=== PATIENT | male | born 1995 | race African-American/Black ===

== ENCOUNTER 2019-07-17 01:13 | Emergency (ER) | payer OTHER, SELFPAY ==
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
[2019-07-17 01:17] VITALS: BP 123/81; PULSE 89; RESP 14; TEMP 36.3; O2SAT 98
[2019-07-17 02:13] LABS: Basophils Percent Auto 0.5 % (0.2-1.2); Eosinophils Absolute Auto 0.1 K/mm3 (0-0.3); Eosinophils Percent Auto 2.5 % (0-4.4); Hematocrit 42.5 % (42.0-52.0); Hemoglobin 13.7 g/dL (14.0-18.0); Immature Granulocyte Absolute 0.04 K/mm3 (0.00-0.031); Immature Granulocyte Percent A 0.7 % (0-0.5); Lymphocytes Absolute Auto 2.11 K/mm3 (0.9-3.2); Lymphocytes Percent Auto 37.4 % (18.3-44.2); Mean Corpuscular HGB Conc 32.2 g/dl (32-36); Mean Corpuscular Hemoglobin 27.8 pg (26-34); Mean Corpuscular Volume 86.4 fl (80-100); Monocytes Absolute Auto 0.5 K/mm3 (0.1-0.6); Monocytes Percent Auto 8.7 % (2.6-8.5); Neutrophils Absolute Auto 2.8 K/mm3 (1.3-6.7); Neutrophils Percent Auto 50.2 % (45.5-73.1); Platelet Count Result 392 k/mm3 (150-375); Red Blood Count 4.92 M/mm3 (4.6-6.20); Red Cell Distribution Width 12.9 % (11.5-14.5); White Blood Count 5.6 K/mm3 (4.5-10.0)
[2019-07-17 02:25] LABS: INR 0.9; Prothrombin Time 11.5 Seconds (11.1-14.7)
[2019-07-17 02:26] LABS: Partial Thromboplastin Time 24.5 SECONDS (22.3-36.8)
[2019-07-17 02:27] LABS: Alanine Aminotransferase 82 U/L (4-50); Albumin Level 4.9 g/dL (3.5-5.1); Alkaline Phosphatase 85 U/L (38-126); Aspartate Amino Transferase 55 U/L (17-59); Bilirubin,Total 0.2 mg/dL (0.2-1.3); Blood Urea Nitrogen 13 mg/dL (9-20); Calcium 9.6 mg/dL (8.4-10.2); Carbon Dioxide 27 mmol/L (22-30); Chloride 103 mmol/L (98-107); Estimated CRCL calculation 121 ml/min; Estimated Glomerular Filt Rate > 60; Glucose 119 mg/dL (75-110); Potassium 3.5 mmol/L (3.4-5.0); Sodium 144 mmol/L (137-145)
[2019-07-17 02:42] VITALS: BP 137/85; PULSE 82; RESP 20; O2SAT 95
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
[2019-07-17 04:35] VITALS: BP 133/66; PULSE 81; RESP 14; O2SAT 98
--- NOTE | 2019-07-17 05:05 | PC.NURSE ---
pt refused tdap, then changed his mind.
[2019-07-17] MEDS: TETANUS,DIPHTHERIA,AC PERTUSSIS ADULT (0.5 ML) BOOSTRIX IM (05:43)
[2019-07-17 06:10] VITALS: BP 129/79; PULSE 68; RESP 12; TEMP 36.7; O2SAT 100
== END 2019-07-17 06:12 | disposition home or self-care (01) ==
PROVIDERS: Emergency Provider General Practice
DX: S41.012A Laceration without foreign body of left shoulder, initial encounter (principal); Z23 Encounter for immunization; W26.0XXA Contact with knife, initial encounter
CPT/HCPCS: 12032; 36415; 71045; 73030; 80053; 85025; 85610; 85730; 90471; 90715; 99284

== ENCOUNTER 2021-02-12 22:39 | Emergency (ER) | payer SELFPAY ==
--- NOTE | ~2021-02-12 | XR_ITS ---
EXAMINATION: XR abdomen/kub 1V DATE: 02/13/2021 04:26 INDICATION: Left flank pain. TECHNIQUE: A supine view of the abdomen on 2 radiographs was obtained. COMPARISON: CT abdomen and pelvis 02/13/2021 FINDINGS: There are no dilated loops of bowel. There is no urolithiasis. There are phleboliths in the pelvis. IMPRESSION: 1. No urolithiasis. Reviewed, dictated and finalized at location A. [employer] IMPRESSION: 1. No urolithiasis.
--- NOTE | ~2021-02-12 | CT_ITS ---
EXAMINATION: CT abdomen pelvis wo con DATE: 02/13/2021 04:31 INDICATION: Hematuria. Left groin pain. TECHNIQUE: Computed tomography (CT) of the abdomen and pelvis was performed without intravenous contr ast. Automated exposure control and iterative reconstruction technique were employed. The dose-length product was 1290.83 mGy-cm. COMPARISON: None. FINDINGS: The visualized portions of the lung bases demonstrate mild atelectasis on the left. No pleu ral effusion. The heart size is normal. No pericardial effusion. There is diffuse hepatic steatosis. The gallbladder, spleen, pancreas, adrenal glands, and kidneys are normal. There is no urolithiasis. There are no dilated loops of bowel. The appendix is normal. There are no pathologically enlarged lym ph nodes. There is no free intraperitoneal fluid. There is mild thoracic spondylosis. There is mild c hronic height loss of multiple thoracic vertebral bodies. IMPRESSION: 1. No urolithiasis. 2. Diffuse hepatic steatosis. Reviewed, dictated and finalized at location A. ER TR[employer]MER
[2021-02-12 22:45] VITALS: BP 149/100; PULSE 102; RESP 18; TEMP 36.3; O2SAT 99
[2021-02-13 02:10] VITALS: BP 152/100; PULSE 95; RESP 18; O2SAT 98
[2021-02-13 03:44] LABS: Basophils Percent Auto 0.7 % (0.2-1.2); Eosinophils Absolute Auto 0.1 K/mm3 (0-0.3); Eosinophils Percent Auto 2.6 % (0-4.4); Hematocrit 41.6 % (42.0-52.0); Hemoglobin 13.8 g/dL (14.0-18.0); Immature Granulocyte Absolute 0.02 K/mm3 (0.00-0.031); Immature Granulocyte Percent A 0.4 % (0-0.5); Lymphocytes Absolute Auto 2.49 K/mm3 (0.9-3.2); Lymphocytes Percent Auto 45.7 % (18.3-44.2); Mean Corpuscular HGB Conc 33.2 g/dl (32-36); Mean Corpuscular Hemoglobin 28.3 pg (26-34); Mean Corpuscular Volume 85.2 fl (80-100); Mean Platelet Volume 8.6 fl (7.4-10.4); Monocytes Absolute Auto 0.5 K/mm3 (0.1-0.6); Monocytes Percent Auto 9.2 % (2.6-8.5); Neutrophils Absolute Auto 2.3 K/mm3 (1.3-6.7); Neutrophils Percent Auto 41.4 % (45.5-73.1); Platelet Count Result 419 k/mm3 (150-375); Red Blood Count 4.88 M/mm3 (4.6-6.20); Red Cell Distribution Width 12.4 % (11.5-14.5); White Blood Count 5.5 K/mm3 (4.5-10.0)
[2021-02-13 03:58] LABS: Alanine Aminotransferase 192 U/L (4-50); Albumin Level 4.9 g/dL (3.5-5.1); Alkaline Phosphatase 93 U/L (38-126); Anion Gap 10 mmol/L (8-16); Aspartate Amino Transferase 89 U/L (17-59); Bilirubin,Total 0.4 mg/dL (0.2-1.3); Blood Urea Nitrogen 15 mg/dL (9-20); Calcium 9.9 mg/dL (8.4-10.2); Carbon Dioxide 25 mmol/L (22-30); Chloride 103 mmol/L (98-107); Estimated CRCL calculation 115 ml/min; Estimated Glomerular Filt Rate > 60; Glucose 101 mg/dL (65-110); Potassium 3.7 mmol/L (3.4-5.0); Sodium 138 mmol/L (137-145)
[2021-02-13 04:09] LABS: Add Urine Microscopic? YES; Appearance Urine Clear (Clear); Bilirubin Urine Negative (Negative); Blood Urine Negative (Negative); Color Urine Yellow (Yellow); Glucose Urine UA Negative (Negative); Ketones Urine Negative (Negative); Leukocyte Esterase Ur Negative LEU/UL (Negative); Mucus Urine Moderate /lpf; Nitrate Urine Negative (Negative); Protein Urine Negative (Negative); Squamous Epithelial Cell Urine Rare /hpf (Few); WBC Urine 0-3 /hpf
[2021-02-13 04:16] LABS: Specific Grav Ur 1.032 (1.001-1.035)
--- NOTE | 2021-02-13 04:44 | ED.MALEGU ---
HPI - Male Genitourinary General Chief complaint: Urogenital-Male Stated complaint: left groin pain Time Seen by Provider: 02/13/21 02:04 Source: patient and RN notes reviewed Mode of arrival: ambulatory Limitations: no limitations History of Present Illness HPI Narrative: This is a 25 year old male who presents for evaluation of left groin pain. Patient reports mild dull ache for 2 weeks but over past 3 days his pain has worsened. He states his pain is located to left groin. He denies testicular enlargement, swelling or pain. He denies hematuria, dysuria or penile discharged. He denies back pain, nausea, vomiting or fever. He denies noticing any bulging at location. He has not taken anything for pain. Rates pain 08/14. Related Data Allergies Allergy/AdvReac Type Severity Reaction Status Date / Time amoxicillin Allergy Unknown Verified 02/13/21 02:07 Review of Systems Review of Systems: All systems reviewed & are unremarkable except as noted in HPI and below PMFSH Past Medical History Medical History Patient denies medical problems Surgical History Surgical History (Updated 07/17/19 @ 04:31 by Valerie Stanley MD) No pertinent past surgical history Social History Social History (Updated 07/17/19 @ 04:31 by Valerie Stanley MD) Smoking status: Never smoker Alcohol intake: current Exam Const: General: healthy appearing, no acute distress and alert Eyes: EOM: EOMs intact bilaterally Resp: Effort & Inspection: normal respiratory effort and no retractions Auscultation: clear to auscultation bilaterally Cardio: Rate: regular rate Rhythm: regular rhythm Heart sounds: no murmurs GI: GI Palp: Yes Soft to palpation, No Tenderness to palpation present (GI), No Guarding due to palpation present (GI) and No Rigid due to palpation Auscultation: normal bowel sounds : General: Yes no CVA tenderness Penis: Yes normal penis and Yes circumcised Scrotum: scrotum normal and no scrotal swelling Testes: no epidiymal tenderness, no testicular swelling and no testicular tenderness Back/Spine/Pelvis: Back: no CVA tenderness Skin: General skin exam: normal color Rashes: no rashes Neuro: General: patient oriented x3 and moves all extremities Cranial nerves: Yes Nystagmus not present Psych: Mental Status: mental status grossly normal Affect: normal affect Course Reevaluation(s) Reevaluation #1: PAtient has normal testicular and scrotal exam. CT scan did not show nephrolithiasis. He declines medication. Date: 02/13/21 Time: 05:40 Vital Signs Vital signs: Vital Signs Temperature 97.3 F L 02/12/21 22:45 Pulse Rate 102 H 02/12/21 22:45 Respiratory Rate 18 02/12/21 22:45 Blood Pressure 149/100 H 02/12/21 22:45 Pulse Oximetry 99 02/12/21 22:45 Temperature 97.3 F L 02/12/21 22:45 Pulse Rate 81 02/13/21 05:57 Respiratory Rate 17 02/13/21 05:57 Blood Pressure 146/95 H 02/13/21 05:57 Pulse Oximetry 98 02/13/21 05:57 MDM - Male Genitourinary Lab Data Attestation: I reviewed the patient's lab results. Result diagrams: 02/13/21 03:39 02/13/21 03:39 Labs: Lab Results 02/13/21 02/13/21 02/13/21 Range/Units 03:39 03:39 03:52 WBC 5.5 (4.5-10.0) K/mm3 RBC 4.88 (4.6-6.20) M/mm3 Hgb 13.8 L (14.0-18.0) g/dL Hct 41.6 L (42.0-52.0) % MCV 85.2 (80-100) fl MCH 28.3 (26-34) pg MCHC 33.2 (32-36) g/dl RDW 12.4 (11.5-14.5) % Plt Count 419 H (150-375) k/mm3 MPV 8.6 (7.4-10.4) fl Immature Gran % (Auto) 0.4 (0-0.5) % Neut % (Auto) 41.4 L (45.5-73.1) % Lymph % (Auto) 45.7 H (18.3-44.2) % Otero % (Auto) 9.2 H (2.6-8.5) % Eos % (Auto) 2.6 (0-4.4) % Baso % (Auto) 0.7 (0.2-1.2) % Lymph # (Auto) 2.49 (0.9-3.2) K/mm3 Otero # (Auto) 0.5 (0.1-0.6) K/mm3 Eos # (Auto) 0.1 (0-0.3) K/mm3 Baso # (Auto)
[2021-02-13 05:57] VITALS: BP 146/95; PULSE 81; RESP 17; O2SAT 98
== END 2021-02-13 05:56 | disposition home or self-care (01) ==
PROVIDERS: Emergency Provider General Practice; PCP Nurse Practitioner Family
DX: R10.32 Left lower quadrant pain (principal)
CPT/HCPCS: 36415; 74018; 74176; 80053; 81001; 85025; 99284

== ENCOUNTER 2021-08-06 22:08 | Emergency (ER) | payer OTHER, SELFPAY ==
--- NOTE | ~2021-08-06 | CT_ITS ---
EXAMINATION: CT cervical spine wo con DATE: 08/06/2021 22:43 INDICATION: Neck pain TECHNIQUE: Computed tomography (CT) of the cervical spine was performed without intravenous contrast. The dose-length product (DLP) was 1245.47 mGy-cm. Automated exposure control and iterative reconstru ction technique were employed. COMPARISON: None FINDINGS: There is no fracture, dislocation, or subluxation. The vertebral body heights, alignment, a nd intervertebral disc spaces are normal. The paravertebral soft tissues are unremarkable. The odonto id is intact. There appears to be mild cervical lymphadenopathy of unclear etiology. IMPRESSION: 1. No acute osseous abnormality. 2. Mild cervical lymphadenopathy of unclear etiology. Clinical follow-up is recommended. Reviewed, dictated and finalized at location F. IMPRESSION: 1. No acute osseous abnormality. 2. Mild cervical lymphadenopathy of unclear etiology. Clinical follow-up is rec ommended.
--- NOTE | ~2021-08-06 | XR_ITS ---
EXAMINATION: XR knee LT 3V DATE: 08/06/2021 22:40 INDICATION: Left knee pain TECHNIQUE: Three views of the left knee were obtained. COMPARISON: None. FINDINGS: Alignment is normal. No fracture or osteochondral lesion. Joint spaces are normal with no e rosions. No joint effusion/synovitis. Soft tissues are unremarkable. IMPRESSION: 1. No acute osseous abnormality. Reviewed, dictated and finalized at location F.
[2021-08-06 22:12] VITALS: BP 133/110; PULSE 117; RESP 20; TEMP 36.6; O2SAT 99
[2021-08-06 22:23] VITALS: BP 133/110; PULSE 98; RESP 20; O2SAT 99
--- NOTE | 2021-08-06 22:32 | PC.NURSE ---
Pt to Xray at this time.
--- NOTE | 2021-08-06 22:49 | PC.NURSE ---
DEWAYNE from DR. Aleman for 60mg Toradol IM once.
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
[2021-08-06 23:16] VITALS: BP 155/106; PULSE 108; RESP 18; O2SAT 98
[2021-08-07 00:05] VITALS: BP 142/102; PULSE 100; RESP 18; O2SAT 99
== END 2021-08-07 00:03 | disposition home or self-care (01) ==
PROVIDERS: Emergency Provider Emergency Medicine; PCP Nurse Practitioner Family
DX: S80.212A Abrasion, left knee, initial encounter (principal); S16.1XXA Strain of muscle, fascia and tendon at neck level, initial encounter; R59.9 Enlarged lymph nodes, unspecified; V43.62XA Car passenger injured in collision with other type car in traffic accident, initial encounter
CPT/HCPCS: 72125; 73562; 99284

== ENCOUNTER 2024-05-21 14:14 | Emergency (ER) | payer SELFPAY ==
[2024-05-21 15:01] VITALS: BP 154/96; PULSE 96; RESP 16; TEMP 36.4; O2SAT 98
--- OUTSIDE RECORDS SUMMARY | 2024-05-21 16:48 | XMS_ITS | Clinical Summary ---
Author Organization [facility] Address [address] [place] [id number] Care Team Providers Care Art Consultant Name Role Phone Елена Escalante SKIN CARE TECHNICIAN Primary Care Provider [phone] Allergies Active Allergy Reactions Criticality Noted Date Comments Amoxicillin Hives 05/29/2019 Medications No known medications Family History Medical History Relation Comments No Known Problems Mother Relation Status Comments Father Mother Alive Social History Tobacco Use Types Packs/Day Years Used Date Smoking Tobacco: Never Passive Smoke Exposure: Never Smokeless Tobacco: Never Tobacco Cessation:Counseling Given: Not Answered Alcohol Use Standard Drinks/Week Comments Never 0 (1 standard drink = 0.6 oz pur e alcohol) AUDIT-C Answer Date Recorded Frequency of Alcohol Consumption Never 05/29/2019 Average Number of Drinks Not on file 020 Frequency of Binge Drinking Not on file 05/06 Sex and Gender Information Value Date Recorded Sex Assigned at Not on file Legal Sex Male 10:32 PM CDT Gender Identity Not on file Sexual Orientation Not on file Last Filed Vital Signs Vital Sign Reading Time Taken Comments Blood Pressure 153/94 12/16/2022 2:13 PM CDT Pulse 78 12/16/2022 2:13 PM CDT Temperature 36.7 C (98 F) 12/16/2022 2:13 PM CDT Respiratory Rate 20 12/16/2022 2:13 PM CDT Oxygen Saturation 99% 12/16/2022 2:13 PM CDT Inhaled Oxygen Concentration - - Weight 117.9 kg (260 lb) 12/16/2022 2:13 PM CDT Height 177.8 cm (5' 10 ) 12/16/2022 2:13 PM CDT Body Mass Index 37.31 12/16/2022 2:13 PM CDT Plan of Treatment Health Maintenance Due Date Last Done Comments Annual Physical 1996 Hepatitis C 09/17/2011 COVID-19 Vaccine ( season) 2023 Influenza Adult (#1) 2023 DTaP, Tdap and Td Vaccines (7 - Td or Tdap) 07/16/2029 07/17/2019, 07/08/2010, 12/18/2004, Additional history exists Hepatitis B Vaccines Completed 03/19/1997, 12/26/1996, 04/19/1995 Meningococcal Vaccine Aged Out 08/03/2006 No yasmin noemi eligible based on patient's age to complete this topic HPV Vaccines Completed 07/08/2010, 12/05, 10/21/2009 Meningococcal B Vaccine Aged Out No l onger eligible based on patient's age to complete this topic Pneumococcal Vaccine: Pediatrics (0 to 5 Years) and At-Risk Patients (6 to 64 Years) Aged Out No longer eligible based on patient's age to complete this topic RSV Immunizations Under 20 Months Aged Out No longer eligible based on patient's age to complete this topic Insurance C/O [employer] [id number] [employer] Care Teams Art Consultant Relationship Specialty Start Date End Date Елена Escalante, FELIPE [address] [place] [address] PCP - General NURSE PRACTITIONER 12/16/22
--- OUTSIDE RECORDS SUMMARY | 2024-05-21 16:48 | XMS_ITS | CONTINUITY OF CARE DOCUMENT ---
Author Name sharri harrell Address Unknown Organization [facility] Address [address] [place] [address] Phone [phone] Care Team Providers Care Instructional Design Consultant Name Role Phone Cruz Lechuga MD Unavailable [phone] FRANCOIS PAVING CREW FOREMAN, DELORA Unavailable [phone] FRANCOIS [employer] FOREMAN, DELORA Unavailable PROBLEMS Condition Status Date Provider Notes Hypertension active Jackson Unger Obesity active Jackson Unger Chest pain active Jackson Unger Family History of Sudden Cardiac active Jackson Unger Hyperglycemia active Jackson Cejaberg ENCOUNTERS Date Type Provider Location Encounter Diag nosis - In-person encounter Office Visit Cruz Lechuga MD [facility] Family History of Sudden Cardiac DeathHyperglycemia VITAL SIGNS Date Observation Value Provider weight E&M 245 [lb_av] Carla Evans Body Mass Index (Ratio) 35.15 kg/m2 Jonathan Unger blood pressure, cuff size large Ke rri Kiara blood pressure, diastolic 80 mm[Hg] Ke rri Kiara blood pressure, systolic 142 mm[Hg] Cedric Craig oxygen saturation, oximetry 98 % Azra Craig respiratory rate E&M 18 /min Azra peterson pulse rate 93 /min Azra Albright [facility] weight E&M 245 [lb_av] Azra Albright [facility] height E&M 70 [in_i] Azra Albright [facility] ALLERGIES Allergy Name Onset Date Reaction Criticality Status AMOXICILLIN Low Criticality active RESULTS Date Observation Value Provider Reference Range Interpretation Location triglyceride, serum, fasting 158 mg/dL [facility] HDL cholesterol, serum 37 mg/dL [facility] LDL cholesterol, serum 136 mg/dL [facility] cholesterol, serum 205 mg/dL [facility] protein, total, serum 7.7 g/dL [facility] albumin, serum 4.3 g/dL [facility] bilirubin, serum, total 0.40 mg/dL [facility] alkaline phosphatase, serum 76 1/L [facility] alanine aminotransferase (SGPT), serum 72 1/L [facility] aspartate aminotransferase (SGOT), serum 51 1/L [facility] calcium, serum 9.6 mg/dL [facility] blood glucose, random 91 mg/dL [facility] creatinine, serum 1.14 mg/dL [facility] urea nitrogen, blood 16 mg/dL [facility] carbon dioxide, serum, total 27 mmol/L [facility] chloride, serum 104 mmol/L [facility] potassium, serum 4.3 mmol/L [facility] sodium, serum 139 mmol/L [facility] hemoglobin A1C, blood, as % of total hemoglobin 6.3 % [facility] HISTORY OF MEDICATION USE No Known Medication SOCIAL HISTORY Date Observation Value Provider social history E&M Smoking Histo ry: P atient has never smoked. [facility] social history reviewed E&M revi ewed - no changes required [facility] smoking status Never smoker Azra Rafael wadsworth FAMILY HISTORY Family Member Condition Full Sister Family History of Hadley dden Cardiac : Full Sister Family History of Hy pertension: Mother Negative FH of Coron roel Artery Disease Father Family History of Hadley dden Cardiac : INSURANCE PROVIDERS Payer name Policy type / Coverage type Rene red green party ID [facility] [id number] 1 ADVANCE DIRECTIVES Name Date DISCUSSED - NO DECISION MADE TREATMENT PLAN Date Name Performer Cardiology New Patie nt:Pt reports significant weight gain (~60 lbs) in the past couple years. [facility] Cardiology New Patie nt:HgA1c of 6.3%. Has family hx of DM. [facility] Cardiology New Patie nt:Has family hx of HTN. Last week BP was elevated and today it is also elevated at 142/80. Will obtain echo, stress test, as well as renal artery duplex due to the premature HTN. BP today: 142/80 [facility] Cardiology New Patie nt:Complains of chest pressure, more when eating. No SOB or palpitations. Has family hx of HTN and DM. Last week BP was elevated and today it is also elevated at 142/80. Will obtain echo, stress test, gallbladder US, CXR. [facility] [place] Date Name Abdominal Ultrasound Limited Renal Artery Duplex CXR- PA/Lat Stress Routine Complete Echo HISTORY OF PROCEDURES Procedure Date Procedure Name Provider Procedure Notes S tatus Ultrasound, single organ Cruz Lechuga MD completed EKG Cruz Lechuga MD completed
--- OUTSIDE RECORDS SUMMARY | 2024-05-21 16:48 | XMS_ITS | Clinical Summary ---
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 Gender Identity Not on file Sexual Orientation Not on file Plan of Treatment Health Maintenance Due Date Last Done Comments Hepatitis C Virus (HCV) Screening 1993 TdaP Immunization 1993 Hepatitis B Immunization (1 of 3 - 19+ 3-dose series) 2012 Influenza Immunization (#1) 2023 SARS-COV-2 Immunization ( - 2023- season) 2023 Respiratory Syncytial Virus (RSV) Immunization (Adult) (1 - 1-dose 75+ series) 2068 Meningococcal Immunization (ACWY) Aged Out No longer eligible based on patient's age to complete this topic Pneumococcal Immunization Combined Aged Out No longer eligible based on patient's age to complete this topic Rotavirus Immunization Aged Out No lo nger eligible based on patient's age to complete this topic
--- OUTSIDE RECORDS SUMMARY | 2024-05-21 19:22 | XMS_ITS | Clinical Summary ---
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
--- OUTSIDE RECORDS SUMMARY | 2024-05-21 19:22 | XMS_ITS | Clinical Summary ---
Author Organization [facility] Address [address] [place] [address] Care Team Providers Care Python Django Developer Name Role Phone Елена Escalante GEOPHYSICS PROFESSOR Primary Care Provider [phone] Allergies Active Allergy Reactions Criticality Noted Date [...] topic Insurance C/O PROVIDER SERVICES [employer] [id number] [employer] Care Teams Python Django Developer Relationship Specialty Start Date End Date Елена Escalante, FELIPE [address] [place] [address] PCP - General NURSE PRACTITIONER 12/16/22
--- OUTSIDE RECORDS SUMMARY | 2024-05-21 19:23 | XMS_ITS | CONTINUITY OF CARE DOCUMENT ---
Author Name sharri harrell Address Unknown Organization [facility] Address [address] [place] [address] Phone [phone] Care Team Providers Care Ssis Ssrs Developer Name Role Phone Cruz Lechuga MD Unavailable [phone] FRANCOIS BUSINESS INFO CONSULTANT, DELORA Unavailable FRANCOIS BUSINESS INFO CONSULTANT, DELORA Unavailable PROBLEMS Condition Status Date Provider Notes Hypertension active Jackson Unger Obesity active Jackson Unger Chest pain active Jackson Unger Family History of Sudden Cardiac active Jackson Unger Hyperglycemia active Jackson Cejaberg ENCOUNTERS Date Type Provider Location Encounter Diag nosis - In-person encounter Office Visit Cruz Lechuga MD [facility] Family History of Sudden Cardiac DeathHyperglycemia [...] peterson pulse rate 93 /min Azra Albright [facility] weight E&M 245 [lb_av] Azra Albright [facility] height E&M 70 [in_i] Azra Albright [facility] ALLERGIES Allergy Name Onset Date Reaction Criticality Status AMOXICILLIN Low Criticality active RESULTS Date Observation Value Provider Reference Range Interpretation Location triglyceride, serum, fasting 158 mg/dL [facility] HDL cholesterol, serum 37 mg/dL [facility] LDL cholesterol, serum 136 mg/dL [facility] cholesterol, serum 205 mg/dL [facility] protein, total, serum 7.7 g/dL [facility] albumin, serum 4.3 g/dL [facility] bilirubin, serum, total 0.40 mg/dL [facility] alkaline phosphatase, serum 76 1/L [facility] alanine aminotransferase (SGPT), serum 72 1/L [facility] aspartate aminotransferase (SGOT), serum 51 1/L [facility] calcium, serum 9.6 mg/dL [facility] blood glucose, random 91 mg/dL [facility] creatinine, serum 1.14 mg/dL [facility] urea nitrogen, blood 16 mg/dL [facility] carbon dioxide, serum, total 27 mmol/L [facility] chloride, serum 104 mmol/L [facility] potassium, serum 4.3 mmol/L [facility] sodium, serum 139 mmol/L [facility] hemoglobin A1C, blood, as % of total hemoglobin 6.3 % [facility] HISTORY OF MEDICATION USE No Known Medication SOCIAL HISTORY Date Observation Value Provider social history E&M Smoking Histo ry: P atient has never smoked. [facility] social history reviewed E&M revi ewed - no changes required [facility] smoking status Never smoker Azra Rafael wadsworth FAMILY HISTORY Family Member Condition Full Sister Family History of Hadley dden Cardiac : Full Sister Family History of Hy pertension: Mother Negative FH of Coron roel Artery Disease Father Family History of Hadley dden Cardiac : INSURANCE PROVIDERS Payer name Policy type / Coverage type Rene red green party ID [facility] [id number] 1 ADVANCE DIRECTIVES Name Date DISCUSSED - NO DECISION MADE TREATMENT PLAN Date Name Performer Cardiology New Patie nt:Pt reports significant weight gain (~60 lbs) in the past couple years. [facility] Cardiology New Patie nt:HgA1c of 6.3%. Has family hx of DM. [facility] Cardiology New Patie nt:Has family hx of HTN. Last week BP was elevated and today it is also elevated at 142/80. Will obtain echo, stress test, as well as renal artery duplex due to the premature HTN. BP today: 142/80 [facility] Cardiology New Patie nt:Complains of chest pressure, more when eating. No SOB or palpitations. Has family hx of HTN and DM. Last week BP was elevated and today it is also elevated at 142/80. Will obtain echo, stress test, gallbladder US, CXR. [facility] Date Name Abdominal Ultrasound Limited Renal Artery Duplex CXR- PA/Lat Stress Routine Complete Echo HISTORY OF PROCEDURES Procedure Date Procedure Name Provider Procedure Notes S tatus Ultrasound, single organ Cruz Lechuga MD completed EKG Cruz Lechuga MD completed
--- OUTSIDE RECORDS SUMMARY | 2024-05-21 19:23 | XMS_ITS | Data Portability ---
Author Organization [facility] [employer], Main Office Address [address] [place] [address] Assessment No assessment recorded. Plan of Treatment Reminders Order Date Submit Date Provider Last Modified By Organization Details Last Modified Time Details Appointments None recorded. Lab glycohemogl obin, total, blood [address] (Lab), [address] [place], [address], 4 08:53:43 lipid panel, serum [address] (Lab), [address] [place], [address], 4 08:53:43 TSH, serum or plasma [address] (Lab), [address] [place], [address], 4 08:53:43 PSA, serum or plasma [address] (Lab), [address] [place], [address], 4 08:53:43 hepatic function panel, serum [address] (Lab), [address] [place], [address], 4 08:53:43 BMP, serum or plasma 2023 024 [email or web address] [facility] (Lab), [address] [place], [address], 4 08:53:44 CBC 2023 024 [email or web address] [facility] (Lab), [address] [place], [address], 4 08:53:44 Referral None recorded. Procedures None recorded. Surgeries None recorded. Imaging US, scrotum 2022 023 [email or web address] [address] [facility] ([facility]), [address] [place], [address], 3 16:35:27 electrocard iogram 2022 023 [facility] ([facility]), [address] [place], [address], 3 09:37:01 Medication Orders None recorded. Patient TargetsNo targets recorded. Patient InstructionsNo instructions recorded. Reason for Referral None Reported. Results Created Date Observation Date Name Description Value Unit Range Abnormal Flag Note LastModifiedBy Organization Detail LastModifiedTime 04/19/19 24 04/19/2023 US, scrot um No observ ation record ed. llalor [facility] [address] [place], [address], 06/13/2023 15:33:17 04/21/19 24 04/19/2023 elect akhil reynaga am No observ ation record ed. llalor Not Available 2023 15:33:18 Result Notes None recorded. Problems Name Problem SNOMED Code Status Onset Date Resolution Date Notes Provider Name and Address Organization Details Recorded Time Diabetes mellitus 89028994 Active 2019 Not Available [employer] 3 21:12:45 Pain of left testicle 0190713016657 9100 Active 2022 OLIVER Payne [address] [place], [address] , [facility] [employer] 3 09:39:54 Essential hypertensi on 62727162 Active 2022 OLIVER Payne [address] [facility], [facility], [place], [address] , [place] [employer] 3 09:47:37 Problem Notes None recorded. Procedures Surgical History None recorded. Imaging Results Imaging Date Name Status LastModified by Organization Details LastModified Time 04/19/2023 US, scrotum completed llalor [facility] [address] [place], [address], 06/13/2023 15:33:17 04/19/2023 electrocardiogram completed llalor Informa tion not available 06/13/2023 15:33:18 Procedure Notes None recorded. Medical Equipment None Reported. Allergies Allergen ID Allergen Name Allergen Category Reaction Reaction Severity Criticality Documentation Date Start Date Code Code System Note Provider Name and Address Organization Details Recorded Time 46673 amoxicill in medicatio n hives severe Not available 05/05/2022 723 RxNorm Not Available [facility] 3 21:13:39 Medications Name Sig Start Date Stop Date Status Note LastModified by Organization Details LastModified Time clindamycin HCl 300 mg capsule 07/11 completed Not Available Not Available Not Available ibuprofen 800 mg tablet 07/11 completed Not Available Not Available Not Available hydrocodone 5 mg-acetaminop hen 325 mg tablet 07/11 completed Not Available Not Available Not Available acetaminophen 300 mg-codeine 30 mg tablet 07/11 completed Not Available Not Available Not Available tramadol 50 mg tablet 07/11 completed Not Available Not Available Not Available amoxicillin 500 mg tablet TAKE 1 TABLET BY MOUTH THREE TIMES DAILY UNTIL GONE 07/11 completed Not Available Not Available Not Available Vitals Date Recorded Body height Body mass index (BMI) Body weight Body temperature Heart rate Oxygen saturation Oxygen saturation in Arterial blood by Pulse oximetry Systolic blood pressure Diastolic blood pressure Provider Name and Address Organization Details Last Updated DateTime 3 177.8 cm 39.3 kg/m2 251228. 31 g 98.6 [degF] 79 /min 99 % 99 % 164 mm[Hg] 92 mm[Hg] Melanie Rajput RN [facility] [employer] [facility] 3 09:32:40 Date Recorded Body height Body mass index (BMI) Body weight Body temperature Heart rate Oxygen saturation Oxygen saturation in Arterial blood by Pulse oximetry Systolic blood pressure Diastolic blood pressure Provider Name and Address Organization Details Last Updated DateTime 4 177.8 cm 39.5 kg/m2 542345. 9 g 97.8 [degF] 83 /min 98 % 98 % 132 mm[Hg] 80 mm[Hg] Hallie Potter RN [facility] [employer] 4 12:39:42 Social History Question Answer Notes LastModified by Organizat ion Details LastModified Time Tobacco Smoking Status Never Smoker Hallie Potter RN [facility], [facility] [employer] [facility] 07/12/2023 12:37:52 Do You Or Have You Ever Used Any Other Forms Of Tobacco Or Nicotine? Yes [email or web address] Information not available 07/12/2023 Sex: Unknown Functional Status None recorded. Mental Status None recorded. Family History Nothing Reported. Medical History No medical history recorded. Past Encounters Encounter ID Performer Location Encounter Start Date Encounter Closed Date Diagnosis/Indication Diagnosis SNOMED-CT Code Diagnosis ICD10 Code Diagnosis Note [id number] OLIVER Payne [facility] Primary [facility] [address] [place] [address] 01/06/2023 09:20:19 01/06/2023 10:29:32 Pain of left testicle 0477304687 8185924 N50.812 -has been a problem for a year or 2, feels a lump -rate d at 5-10/10 on occasion-h as had MRI and was told to f/u with primary, but he didn't have insurance at the time-small area of concern noted to left testicle-w ill get US of scrotum Essential hypertension 47844536 I10 -currenlty untreated, bp 164/92, 79 today-shawn es LUU, CP, SOB, c/o feeling like something is holding his heart-note s + hx of anxiety-he declines starting medication s for bp today-will obtain EKG [id number] OLIVER Payne [facility] Primary Care Deana bellamy [address] [facility] [address] [place] [address] 07/12/2023 12:29:53 07/12/2023 13:21:40 Adult health examination 071322067 Z00.00 Encouraged fresh fruits and veggies-lo w for bothIncrea se daily water intake-1-2 bottles/da y, encouraged 6-8 glasses,En courage 30 mins of daily exercise-d oes not exerciseLD CT-not a smokerocc drinker Health Concerns Section Related Observation LastModified by Organization Detai ls LastModified Time None Recorded Concern Status LastModified by Organization Details LastModified Time None Recorded Advance Directives Directive None Recorded Payers Encounter Date Sequence Insurance Name Policy Number Policy Romeo Covered Member ID Romeo Member ID Guarantor Name 01/06/2023 1 *SELF PAY* June 07/12/2023 1 [facility] (PPO) [id number] Rubens Cardozo [id number] Rubens Cardozo Notes Date Note Type Note Provider Name and Address Organization Details Recorded Time 01/06/2023 text/html Pt is here to discuss bp and pain to left testicle OLIVER Payne [address], [facility] [address], [place], [address], [employer] [facility] [employer] 01/06/2023 12:03:20 07/12/2023 text/html pt is here for annual visit OLIVER Payne [address], [address], [place], [address], [employer] [facility] [employer] 07/12/2023 13:59:47
== END 2024-05-21 15:01 | disposition left against medical advice (07) ==
LOC: ANHED 19:09
PROVIDERS: PCP Nurse Practitioner Family
DX: R51.9 Headache, unspecified (principal)
CPT/HCPCS: 99199